=== PATIENT | female | born 1975 | race Caucasian/White ===

== ENCOUNTER → 2018-07-22 | Outpatient (CLI) | payer OTHER, MEDICAID ==
[2018-07-22 09:49] LABS: ABSOLUTE EOSINOPHILS 0.2 thou/uL (0.0-0.7); ABSOLUTE LYMPHOCYTES 2.3 thou/uL (0.8-5.3); ABSOLUTE MONOCYTES 0.5 thou/uL (0.0-1.2); BASOPHILS 0.6 %; EOSINOPHILS 2.6 %; HEMATOCRIT 39.8 % (37.0-47.0); HEMOGLOBIN 13.1 gm/dL (12.0-15.0); LYMPHOCYTES 39.2 %; MCH 26.3 pg (26.0-34.0); MCV 79.7 fL (80.0-100.0); MONOCYTES 7.8 %; MPV 12.2 fl. (7.2-11.1); NUCLEATED RBCS 0 /100WBC; POLYS 49.8 %; RDW-CV 15.8 % (10.5-14.5); WBC 5.9 thou/uL (4.0-11.0)
[2018-07-22 09:58] LABS: PROTIME 10.7 Seconds (9.20-11.50)
[2018-07-22 10:26] LABS: % SATURATION 14 % (20-39); IRON 57 ug/dL (50-175)
[2018-07-22 10:39] LABS: ANISOCYTOSIS 1+; LARGE PLATELETS OCCASIONAL; PLATELET ESTIMATE DECREASED; POIKILOCYTOSIS 1+
[2018-07-22 10:40] LABS: PLATELET COUNT* 50 thou/uL (150-400)
[2018-07-22 11:06] LABS: ALBUMIN 3.5 g/dL (3.4-5.0); ALKALINE PHOSPHATASE 174 U/L (46-116); ANION GAP 9 mmol/L (7-16); BUN 12 mg/dL (7-18); CALCIUM 9.6 mg/dL (8.5-10.1); CHLORIDE 104 mmol/L (98-107); CHOLESTEROL 195 mg/dL (<200); CO2 25 mmol/L (21-32); CREATININE 0.6 mg/dL (0.6-1.3); GLUCOSE 111 mg/dL (70-99); HDL CHOLESTEROL 42 mg/dL (>40); LDL CHOLESTEROL 126 mg/dL (<100); POTASSIUM 3.6 mmol/L (3.5-5.1); SGOT 140 U/L (15-37); SGPT 142 U/L (30-65); SODIUM 138 mmol/L (136-145); TC:HDL 4.6 Ratio (Not establshd); TOTAL BILIRUBIN 0.6 mg/dL (<0.1-1.0); TOTAL PROTEIN 8.2 g/dL (6.4-8.2); TRIGLYCERIDE 137 mg/dL (<150); VLDL 27 mg/dL (<40)
[2018-07-22 11:08] LABS: SERUM ASSESSMENT Clear
[2018-07-22 17:08] LABS: IgG 1354 mg/dL (700-1600); IgM 466 mg/dL (26-217)
[2018-07-25 12:07] LABS: CERULOPLASMIN 31.4 mg/dL (19.0-39.0)
[2018-07-26 11:07] LABS: ANTI-DNA SCREEN 1 IU/mL (0-9); ANTI-RNP 0.3 AI (0.0-0.9)
== END ==
LOC: M.ULTRA 09:05
PROVIDERS: Nurse Practitioner Adult Health
DX: K76.0 Fatty (change of) liver, not elsewhere classified (principal); R16.1 Splenomegaly, not elsewhere classified